=== PATIENT | male | born 2000 | race Caucasian/White ===

== ENCOUNTER 2022-02-02 04:21 | Emergency (ER) | payer BC ==
[2022-02-02 04:28] VITALS: BP 127/68; PULSE 84; TEMP 98.8; BMI 26.6
[2022-02-02] MEDS ORDERED: AZITHROMYCIN 250 MG TABLET PO ONE (04:34)
== END 2022-02-02 04:47 | disposition home or self-care (01) ==
LOC: FER 04:21
DX: J01.00 Acute maxillary sinusitis, unspecified (principal)
CPT/HCPCS: 99283-25

== ENCOUNTER 2023-09-24 15:51 | Emergency (ER) | payer BC ==
[2023-09-24 16:12] VITALS: BP 114/67; PULSE 74; RESP 15; TEMP 98.5; BMI 26.6
[2023-09-24] MEDS ORDERED: LIDOCAINE HCL 1%, 10 MG/ML (50 mL VIAL) SQ ONE (16:36)
[2023-09-24] MEDS ORDERED: LIDOCAINE HCL 1%, 10 MG/ML (20ML VIAL) ONE ×2 (16:47→16:57)
[2023-09-24] MEDS ORDERED: SULFAMETHOXAZOLE/TRIMETHOPRIM 800MG/160MG D.S. TABLET PO ONE (17:07)
[2023-09-24] MEDS ORDERED: CEPHALEXIN MONOHYDRATE 500 MG CAPSULE (UD) PO ONE (17:07)
[2023-09-24] MEDS ORDERED: DIPHTH,PERTUSS(ACELL),TET 0.5 ML DISP.SYRIN IM ONE ×2 (17:10→17:13)
[2023-09-24] MEDS ORDERED: CEPHALEXIN MONOHYDRATE 500 MG CAPSULE (UD) ONE (17:13)
[2023-09-24] MEDS ORDERED: SULFAMETHOXAZOLE/TRIMETHOPRIM 800MG/160MG D.S. TABLET ONE (17:13)
== END 2023-09-24 17:20 | disposition home or self-care (01) ==
LOC: FER 15:51
PROC: 0H96XZZ Drainage of Back Skin, External Approach (ICD-10-PCS; principal; 2023-09-24)
PROC: 3E0234Z Introduction of Serum, Toxoid and Vaccine into Muscle, Percutaneous Approach (ICD-10-PCS; 2023-09-24)
DX: L02.415 Cutaneous abscess of right lower limb (principal)
CPT/HCPCS: 76882-TC-RT; 87070; 87205; 90715; 99284-25